=== PATIENT | male | born 1970 | race Caucasian/White ===

== ENCOUNTER 2017-11-12 08:00 | Emergency (ER) | payer SELFPAY ==
[~2017-11-12] VITALS: Ht 167.6 cm; Wt 63.0 kg
[2017-11-12 08:02] VITALS: BP 161/87; PULSE 97; RESP 18; TEMP 100.5; O2SAT 96
--- NOTE | 2017-11-12 08:26 | RADRPT ---
EXAM DATE/TIME: 11/12/2017 08:19 [place] COMPARISON: No previous studies available for comparison. INDICATIONS : Chest pain. MEDICAL HISTORY : None. SURGICAL HISTORY : None. ENCOUNTER: Initial ACUITY: 2 days PAIN SCORE: 8/10 LOCATION: Bilateral chest FINDINGS: PA and lateral views of the chest demonstrate the lungs to be symmetrically aerated without evidence of mass, infiltrate or effusion. The cardiomediastinal contours are unremarkable. Osseous structure s are intact. CONCLUSION: No acute disease. Filipe Mejia MD on November 12, 2017 at 8:23 Board Certified Radiologist. This report was verified electronically.
[2017-11-12 08:50] LABS: AUTOMATED NEUTROPHIL # 7.1 TH/MM3 (1.8-7.7); BASOPHIL % 0.4 % (0.0-2.0); EOSINOPHIL % 0.3 % (0.0-4.0); HEMOGLOBIN 16.5 GM/DL (13.0-17.0); LYMPHOCYTE # 0.5 TH/MM3 (1.0-4.8); MEAN CELL VOLUME 87.7 FL (80.0-100.0); MEAN CORPUSCULAR HEMOGLOBIN 30.7 PG (27.0-34.0); MEAN PLATELET VOLUME 8.1 FL (7.0-11.0); MONO % 9.5 % (0.0-8.0); MONOCYTE # 0.8 TH/MM3 (0-0.9); NEUT % 83.8 % (16.0-70.0); PLATELET COUNT 166 TH/MM3 (150-450); RED BLOOD COUNT 5.36 MIL/MM3 (4.50-5.90); WHITE BLOOD COUNT 8.5 TH/MM3 (4.0-11.0)
[2017-11-12 09:05] LABS: BICARBONATE 30.1 MEQ/L (21.0-32.0); BLOOD UREA NITROGEN 15 MG/DL (7-18); CALCIUM 8.8 MG/DL (8.5-10.1); CHLORIDE 100 MEQ/L (98-107); CREATININE 1.21 MG/DL (0.60-1.30); GLOMERULAR FILTRATION RATE 65 ML/MIN (>89); GLUCOSE,RANDOM 96 MG/DL (74-106); SODIUM (NA) 135 MEQ/L (136-145)
[2017-11-12 09:09] LABS: TROPONIN I 0.03 NG/ML (0.02-0.05)
--- NOTE | 2017-11-12 09:32 | PD ---
HPI Chief Complaint: Cold / Flu Symptoms Time Seen by Provider: 09:28 Travel History International Travel<30 days: No Contact w/Intl Traveler<30days: No Traveled to known affect area: No History of Present Illness HPI 47-year-old male presents to the emergency Department with complaint of productive cough, epigastric pressure, shortness of breath, subjective fever, vomiting, diarrhea, body aches 2 days. Has not taken his temperature and cannot report her MAXIMUM TEMPERATURE. Reports wheezing. Denies tobacco use. Has not taken any medications or tried any treatments to alleviate his symptoms. Symptoms are moderate in severity. No known sick contacts. Rates the pressure 80/10. No known relieving or aggravating factors. No primary care provider. No known allergies. Denies significant past medical history. Has no other medical complaints. No other modifying factors or associated signs and symptoms. PFSH Past Medical History Medical History: Denies Significant Hx Past Surgical History Surgical History: No Previous Surgery Social History Alcohol Use: Yes Tobacco Use: No Substance Use: No Allergies-Medications (Allergen,Severity, Reaction): Coded Allergies: No Known Allergies (Verified Allergy, Unknown, 11/12/17) Reported Meds & Prescriptions Reported Meds & Active Scripts Active Ibuprofen 800 Mg Tab 800 Mg PO Q6HR PRN Tessalon Perles (Benzonatate) 100 Mg Cap 100 Mg PO TID PRN 3 Days Deltasone (Prednisone) 20 Mg Tab 40 Mg PO DAILY 4 Days start 11/13/2017 Ventolin Hfa 18 GM Inh (Albuterol Sulfate) 90 Mcg/Act Aer 2 Puff INH Q4-6H PRN Tamiflu (Oseltamivir Phosphate) 75 Mg Cap 75 Mg PO BID 5 Days Review of Systems Except as stated in HPI: all other systems reviewed are Neg Physical Exam Narrative GENERAL: Well-nourished, well-developed male patient, in no acute distress; fever 100.5, nontoxic-appearing SKIN: Warm and dry. No rash. HEAD: Atraumatic. Normocephalic. EYES: Pupils equal and round. No scleral icterus. No injection or drainage. ENT: Mucosa pink and moist. No erythema or exudates. No uvular edema. No uvular , palatal, or tonsillar deviation. Airway patent. EARS: Bilateral pinnae and external canals appear within normal limits. Bilateral tympanic membranes without erythema, dullness or perforation. NECK: Trachea midline. No lymphadenopathy. CARDIOVASCULAR: Regular rate and rhythm. No murmur appreciated. RESPIRATORY: No accessory muscle use. Clear to auscultation with decreased lung sounds in bilateral bases. Breath sounds equal bilaterally. No retractions or tachypnea. GASTROINTESTINAL: Abdomen soft, non-tender, nondistended. Hepatic and splenic margins not palpable. Bowel sounds are active 4 quadrants. MUSCULOSKELETAL: No obvious deformities. No clubbing. No cyanosis. No edema. NEUROLOGICAL: Awake and alert. Oriented 3. No obvious cranial nerve deficits. Motor grossly within normal limits. Normal speech. Moves all extremities. 5/5 strength to all extremities. PSYCHIATRIC: Appropriate mood and affect; insight and judgment normal. Data Data Last Documented VS Vital Signs Date Time Temp Pulse Resp B/P (MAP) Pulse Ox O2 Delivery O2 Flow Rate FiO2 11/12/17 08:02 100.5 97 18 161/87 (111) 96 Orders Orders Electrocardiogram (11/12/17 08:07) Complete Blood Count With Diff (11/12/17 08:07) Basic Metabolic Panel (Bmp) (11/12/17 08:07) Ckmb (Isoenzyme) Profile (11/12/17 08:07) Troponin I (11/12/17 08:07) Influenzae A/B Antigen (11/12/17 08:09) Chest, Pa & Lat (11/12/17 08:07) CKMB (11/12/17 08:33) CKMB% (11/12/17 08:33) Prednisone (Deltasone) (11/12/17 09:45) Albuterol Neb (Albuterol Neb) (11/12/17 09:45) Ibuprofen (Motrin) (11/12/17 09:45) Ed Discharge Order (11/12/17 10:19) Labs Laboratory Tests Test 11/12/17 08:33 White Blood Count 8.5 TH/MM3 Red Blood Count 5.36 MIL/MM3 Hemoglobin 16.5 GM/DL Hematocrit 47.0 % Mean Corpuscular Volume 87.7 FL Mean Corpuscular Hemoglobin 30.7 PG Mean Corpuscular Hemoglobin Concent 35.0 % Red Cell Distribution Width 13.0 % Platelet Count 166 TH/MM3 Mean Platelet Volume 8.1 FL Neutrophils (%) (Auto) 83.8 % Lymphocytes (%) (Auto) 6.0 % Monocytes (%) (Auto) 9.5 % Eosinophils (%) (Auto) 0.3 % Basophils (%) (Auto) 0.4 % Neutrophils # (Auto) 7.1 TH/MM3 Lymphocytes # (Auto) 0.5 TH/MM3 Monocytes # (Auto) 0.8 TH/MM3 Eosinophils # (Auto) 0.0 TH/MM3 Basophils # (Auto) 0.0 TH/MM3 CBC Comment DIFF FINAL Differential Comment Blood Urea Nitrogen 15 MG/DL Creatinine 1.21 MG/DL Random Glucose 96 MG/DL Calcium Level 8.8 MG/DL Sodium Level 135 MEQ/L Potassium Level 3.7 MEQ/L Chloride Level 100 MEQ/L Carbon Dioxide Level 30.1 MEQ/L Anion Gap 5 MEQ/L Estimat Glomerular Filtration Rate 65 ML/MIN Total Creatine Kinase 149 U/L Creatine Kinase MB LESS THAN 0.5 NG/ML Troponin I 0.03 NG/ML MDM Medical Decision Making Medical Screen Exam Complete: Yes Emergency Medical Condition: Yes Medical Record Reviewed: Yes Differential Diagnosis Influenza, gastroenteritis, viral illness, upper respiratory infection, bronchitis Narrative Course 47-year-old male with cold/flu/cough symptoms. Fever of 100.5 in the ER. Nontoxic appearing. Lungs with decreased lung sounds in bilateral bases. No acute distress. No retractions or tachypnea. No audible wheezing. DuoNeb, Deltasone, ibuprofen ordered. CBC unremarkable. BMP unremarkable. Troponin 0.03. EKG with normal sinus rhythm; without ST elevation or depression. Positive for influenza A. Discussed patient findings with Dr. Hernandez and he agrees with my plan of care and patient discharge. 1020: On reexamination the patient reports improvement in his. Lung sounds are clear and equal throughout. Patient denies shortness of breath. Deltasone, Ventolin inhaler, Tessalon Perles, Tamiflu, ibuprofen prescribed for home. Discussed viral illness and symptom management. Instructed patient to follow up with primary care provider. Patient verbalizes understanding and agreement with treatment plan. Patient is medically cleared and stable for discharge. Discussed reasons to return to the emergency department. Patient agrees with treatment plan. The patients vital signs are stable and the patient is stable for outpatient follow-up and treatment. Patient discharged home, stable and in no acute distress. Diagnosis Primary Impression: Influenza A Additional Impression: Acute bronchitis Qualified Codes: J20.9 - Acute bronchitis, unspecified Referrals: [facility] Primary Care Physician Patient Instructions: Acute Bronchitis (ED), General Instructions, Influenza ( ED) Departure Forms: Tests/Procedures, Work Release Special Instructions: No work until fever free for 24 hours Additional Instructions: Ibuprofen or Tylenol as directed and as needed to reduce fever; may alternate ibuprofen and Tylenol as needed every 3 hours to minimize fever Sart-fuj-fiethxy cold/flu medications as directed and as needed for symptom management Get plenty of sleep/rest Drink plenty of fluids to prevent dehydration; such as Gatorade, Powerade, Pedialyte Powell diet to encourage nutrition such as crackers, fruit, applesauce, toast, soup etc. Use an air humidifier/turn off ceiling fans Follow-up with your primary care provider within 1 day Return immediately to the emergency department with worsening of symptoms Med/Other Pt SpecificInfo: Prescription(s) given Scripts Ibuprofen (Ibuprofen) 800 Mg Tab 800 MG PO Q6HR Y for PAIN, #30 TAB 0 Refills Prov: Viji Barba 11/12/17 Benzonatate (Tessalon Perles) 100 Mg Cap 100 MG PO TID Y for COUGH for 3 Days, CAP 0 Refills Prov: Viji Barba 11/12/17 Prednisone (Deltasone) 20 Mg Tab 40 MG PO DAILY for 4 Days, #8 TAB 0 Refills start 11/13/2017 Prov: Viji Barba 11/12/17 Albuterol 18 GM Inh (Ventolin Hfa 18 GM Inh) 90 Mcg/Act Aer 2 PUFF INH Q4-6H Y for SOB/WHEEZING, #1 INHALER 0 Refills Prov: Viji Barba 11/12/17 Oseltamivir (Tamiflu) 75 Mg Cap 75 MG PO BID for Mgmt Viral Infection for 5 Days, #10 CAP 0 Refills Prov: Viji Barba 11/12/17 Disposition: 01 DISCHARGE HOME Condition: Stable Viji Barba Nov 12, 2017 09:32
[2017-11-12] MEDS ORDERED: IBUP1TAB7 PO (09:42)
[2017-11-12] MEDS ORDERED: OSEL75 PO (09:42)
[2017-11-12] MEDS ORDERED: VENTAER INH (09:42)
[2017-11-12] MEDS ORDERED: PRED-503 PO (09:42)
[2017-11-12] MEDS ORDERED: BENZ100 PO (09:42)
[2017-11-12] MEDS ORDERED: IBUPROFEN 800 MG TAB PO ONE (09:45)
[2017-11-12] MEDS ORDERED: predniSONE 20 MG TAB PO ONE (09:45)
[2017-11-12] MEDS ORDERED: RESP: ALBUTEROL 2.5 MG/3 ML NEB (SCH) INH ONE (09:45)
--- NOTE | 2017-11-13 00:23 | EKG ---
Date Performed: 11/12/2017 Time Performed: 08:25:57 PTAGE: 47 years EKG: Sinus rhythm MARKED LEFT AXIS DEVIATION NONSPECIFIC T-WAVE ABNORMALITY ABNORMAL ECG NO PREVIOUS TRACING DOCTOR: Rafa Durbin Interpretating Date/Time 11/13/2017 00:21:51
== END 2017-11-12 10:31 | disposition home or self-care (01) ==
LOC: NEPD 08:00
DX: J10.1 Influenza due to other identified influenza virus with other respiratory manifestations (principal); J20.9 Acute bronchitis, unspecified
CPT/HCPCS: 71046; 80048; 82550; 82552; 84484; 85025; 87804; 93005; 94664; 99284; J7512; J7613